=== PATIENT | female | born 1960 | race African-American/Black ===

== ENCOUNTER 2016-11-06 14:28 | Outpatient (CLI) | payer MEDICARE | END 2016-11-06 14:29 | disposition home or self-care (01) | LOC: HPCALD 14:28 | PROVIDERS: ATTEND Family Medicine | DX: E11.65 Type 2 diabetes mellitus with hyperglycemia (principal) ==

== ENCOUNTER 2016-11-06 18:06 | Outpatient (CLI) | payer MEDICARE ==
[2016-11-06 21:01] LABS: #Basophils 0.1 thou/uL (0.0-0.2); #Eosinphils 0.1 thou/uL (0.0-0.7); #Lymphocytes 3.8 thou/uL (1.20-3.40); #Monocytes 0.6 thou/uL (0.11-0.59); #Neutrophils 4.6 thou/uL (1.40-6.50); %Basophils 0.6 % (0.0-1.0); %Eosinophils 1.4 % (0.0-10.0); %Monocytes 6.5 % (0.0-10.0); Hematocrit 37.7 % (36.0-47.0); Mean Platelet Volume 7.2 fL (7.4-10.4); White Blood Cell (WBC) Count 9.1 thou/uL (4.8-10.8)
[2016-11-07 17:25] LABS: Microalbumin Urine 1.5 mg/dL (0.5-50.0)
== END 2016-11-06 18:07 | disposition home or self-care (01) ==
LOC: HPCALD 18:06
PROVIDERS: ATTEND Family Medicine
DX: E78.5 Hyperlipidemia, unspecified (principal); E11.65 Type 2 diabetes mellitus with hyperglycemia; I10 Essential (primary) hypertension
CPT/HCPCS: 36415; 80061; 82043; 82570; 84443; 85025

== ENCOUNTER 2016-12-05 16:43 | Outpatient (CLI) | payer MEDICARE ==
[2016-12-05 17:21] LABS: #Basophils 0.1 thou/uL (0.0-0.2); #Eosinphils 0.1 thou/uL (0.0-0.7); #Monocytes 0.5 thou/uL (0.11-0.59); #Neutrophils 5.1 thou/uL (1.40-6.50); %Basophils 0.8 % (0.0-1.0); %Eosinophils 1.4 % (0.0-10.0); %Monocytes 4.6 % (0.0-10.0); Hematocrit 34.5 % (36.0-47.0); Mean Platelet Volume 7.1 fL (7.4-10.4); Red Blood Cell (RBC) Count 4.06 mill/uL (4.20-5.40); White Blood Cell (WBC) Count 9.8 thou/uL (4.8-10.8)
[2016-12-05 17:34] LABS: Anion Gap 15 mmol/L (10-20); BUN (Urea Nitrogen) 35 mg/dL (9.8-20.1); Calc. Creatinine Clearance 0 mL/min (70-130); Calcium 9.8 mg/dL (7.8-10.44); Carbon Dioxide 20 mmol/L (22-29); Chloride 103 mmol/L (98-107); Estimated GFR-MDRD 31
== END 2016-12-05 16:44 ==
LOC: HPCALD 16:43
PROVIDERS: ATTEND Family Medicine
DX: I95.2 Hypotension due to drugs (principal)
CPT/HCPCS: 36415; 80048; 85025

== ENCOUNTER 2016-12-09 11:08 | Outpatient (CLI) | payer MEDICARE ==
--- NOTE | 2016-12-09 21:33 | ULT ---
ABDOMINAL ULTRASOUND 12/09/16 Ultrasonography of the abdomen was performed for evaluation of abdominal pain. Documentary images an d worksheets were provided and reviewed. This patient does not image very well by ultrasound and man y areas are gassed out. Detail is poor. The liver is mildly enlarged, measuring 17 cm in oblique sagittal length. Internally, no masses or d ilated ducts could be seen. The gallbladder has been surgically removed. The common bile duct was a normal 6 mm in caliber. The pancreas was mostly obscured by gas. The right kidney was 10 cm long and the left was 11.2 cm long. Both are normal in appearance. The lower pole of the left kidney was not seen well, however. There does appear to be some abdominal calcification just superior to the left kidney that is casting an acoustical shadow. Its etiology is not clear. The aorta and inferior vena cava showed no abnormality. The spleen was normal in size. IMPRESSION: Slightly low sensitivity study showing mild hepatomegaly, but no other acute findings. POS: HOME
--- NOTE | 2016-12-09 21:35 | ULT ---
PELVIC ULTRASOUND 12/09/16 Ultrasonography of the pelvis was done for evaluation of suprapubic pain. The uterus has been surgically removed. The right ovary was not clearly visible. The left ovary was seen and measures 1.7 cm in size. No masses or cysts were seen. Blood flow was present within it. No free fluid was apparent. IMPRESSION: No acute pelvic finding. POS: HOME
== END 2016-12-09 11:09 | disposition home or self-care (01) ==
LOC: BURULT 11:08
PROVIDERS: ATTEND Family Medicine
DX: R10.2 Pelvic and perineal pain (principal); R16.0 Hepatomegaly, not elsewhere classified
CPT/HCPCS: 76700; 76856

== ENCOUNTER 2016-12-15 09:17 | Outpatient (CLI) | payer MEDICARE ==
--- NOTE | 2016-12-15 13:41 | MRI ---
MRI LUMBAR SPINE WITHOUT CONTRAST: HISTORY: Chronic back pain. Injury in 1988. Bilateral leg pain. COMPARISON: None. TECHNIQUE: MRI lumbar spine performed without contrast. FINDINGS: On the STIR sequences, there are Modic type I intermixed with type III changes of the inferior end p late at L4 and superior end plate of L5. Lumbar lordosis is maintained. There is mild disk desicca tion at L5-S1. The aortic contour is normal. No abnormality within the visualized kidneys. No visualized adenopat hy. Paraspinal muscles are normal. Levels are as follows: T12-L1: Partially calcified posterior disk-osteophyte complex without significant neural foraminal or spinal canal narrowing. There is very mild effacement of the ventral CSF space. L1-L2: No significant neural foraminal or spinal canal narrowing. Normal disk signal. L2-L3: Normal disk signal. No significant neural foraminal or spinal canal narrowing. L3-L4: Normal disk signal. No significant neural foraminal or spinal canal narrowing. L4-L5: Modic type I and III changes. Mild disk desiccation. Broad-based posterior disk protrusion extending into the lateral recess and subforaminal zones causing abutment to the bilateral traversi ng and exiting nerve roots. L5-S1: Mild disk desiccation. No significant neural foraminal narrowing or spinal canal narrowing. The conus terminates at L1-L2 disk space. There is hemangioma within the left L4 vertebral body. IMPRESSION: Mild degenerative disk space disease at L4-5 with broad-based posterior disk protrusion causing abut ment of the exiting and traversing nerve roots at this level. Remainder of the lumbar spine is unre markable. POS: [facility]
== END 2016-12-15 09:18 | disposition home or self-care (01) ==
LOC: BURMRI 09:17
PROVIDERS: ATTEND Family Medicine
DX: M51.9 Unspecified thoracic, thoracolumbar and lumbosacral intervertebral disc disorder (principal); M51.26 Other intervertebral disc displacement, lumbar region; M51.36 Other intervertebral disc degeneration, lumbar region
CPT/HCPCS: 72148

== ENCOUNTER 2017-04-17 16:57 | Outpatient (CLI) | payer MEDICARE ==
--- NOTE | 2017-04-17 18:37 | RAD ---
LEFT KNEE FOUR VIEWS 04/17/17 No fracture or joint effusion was appreciated. All bones appear intact. Some calcification is seen i n the ligament along the inferior aspect of the patella, clearly not acute. IMPRESSION: No acute findings. POS: HOME
== END 2017-04-17 16:58 | disposition home or self-care (01) ==
LOC: BURRAD 16:57
PROVIDERS: ATTEND Family Medicine
DX: S80.02XA Contusion of left knee, initial encounter (principal)